=== PATIENT | female | born 1990 | race African-American/Black ===

== ENCOUNTER 2020-11-28 13:34 | Emergency (ER) | payer SELFPAY ==
[~2020-11-28] VITALS: Ht 170.2 cm; Wt 140.9 kg
[2020-11-28 13:49] VITALS: TEMP 98.6
[2020-11-28 14:07] LABS: BASO % 0.3 % (0.0-2.0); EOS % 0.4 % (0-4.0); GRAN # 3.5 (1.4-6.5); GRAN % 51.6 % (42.2-75.2); HEMOGLOBIN 11.7 g/dl (12.5-16.0); LYMPH # 2.5 (1.2-3.4); MEAN CELL VOLUME 94 fl (80.0-100.0); MEAN CORPUSCULAR HEMOGLOBIN 31 pg (27.0-31.0); MEAN CORPUSCULAR HGB CONC 33 g/dl (33.0-37.0); MEAN PLATELET VOLUME 9.8 fl (7.4-10.4); MONO # 0.7 (0.1-0.6); MONO % 10.6 % (1.7-9.3); PLATELET COUNT 286 K/mm3 (130-400); RED BLOOD COUNT 3.81 M/mm3 (4.10-5.30)
[2020-11-28 14:08] LABS: HEMATOCRIT 35.7 % (37.0-47.0)
[2020-11-28 14:18] LABS: ALBUMIN 3.8 gm/dL (3.5-5.0); BILIRUBIN,TOTAL 0.4 mg/dL (0.0-1.0); CALCIUM 9.1 mg/dL (8.4-10.2); CREATININE, serum 0.69 (0.52-1.25); POTASSIUM 3.9 mmol/L (3.4-5.0); TOTAL PROTEIN 8.2 gm/dL (6.4-8.2)
[2020-11-28 14:18] LABS: COLLECTION METHOD CLEAN CATCH
[2020-11-28 14:42] LABS: PH 7 (5-8); URINE APPEARANCE Clear; URINE BACTERIA None Seen /hpf; URINE BILIRUBIN Negative (NEGATIVE); URINE BLOOD Negative (NEGATIVE); URINE COLOR Yellow; URINE GLUCOSE Negative (NEGATIVE); URINE KETONE Negative (NEGATIVE); URINE LEUKOCYTE ESTERASE Negative (NEGATIVE); URINE NITRATE Negative (NEGATIVE); URINE PROTEIN(semi-quant) Negative (NEGATIVE); URINE RBC 0-2 /hpf; URINE UROBILINOGEN Negative (NEGATIVE)
[2020-11-28 16:10] VITALS: BP 124/62; PULSE 74
== END 2020-11-28 16:10 | disposition home or self-care (01) ==
LOC: COL.ER 13:34
PROVIDERS: Personal Emergency Response Attendant
DX: E86.0 Dehydration (principal)
CPT/HCPCS: J7030

== ENCOUNTER 2021-07-02 14:42 | Emergency (ER) | payer SELFPAY ==
[~2021-07-02] VITALS: Ht 170.2 cm; Wt 160.9 kg
[2021-07-02 14:59] VITALS: BP 129/76; TEMP 97.9
[2021-07-02 17:03] VITALS: PULSE 75
== END 2021-07-02 17:03 | disposition home or self-care (01) ==
LOC: COL.ER 14:42
DX: B34.9 Viral infection, unspecified (principal); Z20.822 Contact with and (suspected) exposure to COVID-19